=== PATIENT | female | born 1935 | race Caucasian/White ===

== ENCOUNTER 2017-04-27 14:33 | Emergency (ER) | payer OTHER ==
--- NOTE | 2017-04-27 14:35 | PDOC ---
Rapid Medical Evaluation Time Seen by Provider: 04/27/17 14:34 Medical Evaluation: Allergies Allergy/AdvReac Type Severity Reaction Status Date / Time No Known Allergies Allergy Verified 04/20/17 11:19 04/27/17 14:34 I have performed a brief in-person evaluation of this patient. The patient presents with a chief complaint of: Double vision x 1 week. Seen in ED for same few days ago and had optho consulted who recommenced CT head in ED which pt declined as per records. Has since seen optho and scheduled for retinal angiogram a week from now. Has h/o HTN, ?PVD Pertinent physical exam findings:Eyes grossly unremarkable, non-focal I have ordered the following:Nothing. Pt will need some type of neuroimaging but will defer to main ED staff The patient will proceed to the ED for further evaluation. 04/27/17 14:36 04/27/17 14:41 Discharge Disposition - Referrals Referrals: Lillian Camarena MD [Primary Care Provider] - - Patient Instructions - Post Discharge Activity
[2017-04-27 14:39] VITALS: BP 164/86; PULSE 87; TEMP 97.2; BMI 20.2
--- NOTE | 2017-04-27 15:23 | PDOC ---
History of Present Illness - General Chief Complaint: Difficulty with Vision Stated Complaint: SENT BY PCP Time Seen by Provider: 04/27/17 14:34 - History of Present Illness Initial Comments: 04/27/17 15:17 81 yo F with h/o HLD, HTN, and PAD who presents with blurry vision. Pt. with 1 week of intermittent,self resolving, stable, vertical diplopia with both eyes open improved with closing on eye, lasts for minutes to hours. No identifiable precipitators. No painful vision loss, no headache, no trauma. Saw management information systems director within past 3-4 days with unremarkable workup and 60/20 vision. Last seen 1 week ago in [facility] ED for similiar presentation with negative workup. CT Head not performed. 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 H/o BL cataract surgeries and R eye macular degeneration. Scheduled angiogram of the R eye May,. Denies chest pain, SOB, N/V, fevers/chills, urinary complaints, GI/abdominal complaints, LOC, lightheadedness, vertigo. Past History - Past Medical History Allergies/Adverse Reactions: Allergies Allergy/AdvReac Type Severity Reaction Status Date / Time No Known Allergies Allergy Verified 04/27/17 14:38 Home Medications: Ambulatory Orders Lisinopril 10 mg PO DAILY 04/20/17 COPD: No Hypercholesterolemia: Yes Other medical history: PVD - Suicide/Smoking/Psychosocial Hx Smoking History: Current every day smoker Number of Cigarettes Smoked Daily: 10 Information on smoking cessation initiated: No Hx Alcohol Use: Yes (SOCIAL) Drug/Substance Use Hx: No Substance Use Type: None Review of Systems - Review of Systems Comments:: 04/27/17 15:18 GENERAL/CONSTITUTIONAL: No fever or chills. No weakness. HEAD, EYES, EARS, NOSE AND THROAT: + Blurry vision/Diplopia. No ear pain or discharge. No sore throat.- CARDIOVASCULAR: No chest pain or shortness of breath RESPIRATORY: No cough, wheezing, or hemoptysis. GASTROINTESTINAL: No nausea, vomiting, diarrhea or constipation. GENITOURINARY: No dysuria, frequency, or change in urination. MUSCULOSKELETAL: No joint or muscle swelling or pain. No neck or back pain. SKIN: No rash NEUROLOGIC: No headache, vertigo, loss of consciousness, or change in strength/ sensation. ENDOCRINE: No increased thirst. No abnormal weight change HEMATOLOGIC/LYMPHATIC: No anemia, easy bleeding, or history of blood clots. ALLERGIC/IMMUNOLOGIC: No hives or skin allergy. *Physical Exam - Vital Signs Last Vital Signs Temp Pulse Resp BP Pulse Ox 97.2 F L 87 20 164/86 96 04/27/17 14:34 04/27/17 14:34 04/27/17 14:34 04/27/17 14:34 04/27/17 14:34 - Physical Exam Comments: 04/27/17 15:18 GENERAL: Awake, alert, and fully oriented, in no acute distress HEAD: No signs of trauma, normocephalic, atraumatic EYES: PERRLA, EOMI, sclera anicteric, conjunctiva clear ENT: Auricles normal inspection, hearing grossly normal, nares patent, oropharynx clear without exudates. Moist mucosa NECK: Normal ROM, supple, no JVD, or masses LUNGS: No distress, speaks full sentences, clear to auscultation bilaterally HEART: Regular rate and rhythm, normal S1 and S2, no murmurs, rubs or gallops, peripheral pulses normal and equal bilaterally. EXTREMITIES : Normal inspection, Normal range of motion, no edema. No clubbing or cyanosis. NEUROLOGICAL: Cranial nerves II through XII grossly intact. Normal speech, normal gait, no focal sensorimotor deficits SKIN: Warm, Dry, normal turgor, no rashes or lesions noted. Medical Decision Making - Medical Decision Making 04/27/17 16:00 81 yo F with h/o HLD, HTN, and PAD who presents with 1 week of intermittent, self resolving, stable, vertical diplopia with symptom onset occuring when both eyes open and improved with closing of one eye. Typically lasts for minutes to hours and there are no identifiable precipitators. Denies painful vision loss, headache, trauma, dizziness, slurred speech, lightheadedness, or weakness. Physical exam benign with no focal neuro deficits, and hemodynamically stable. H /o BL cataract surgeries and R eye macular degeneration. Will obtain CT head to r/o CVA. ED Course: CT Head Non Contrast: No evidence of hemorrhage, mass, or infarction. Imaging results discussed with pt. Pt. advised to stay in obs per DR. Moreno, but pt. adamantly refuses. Will proceed with outpatient f/u. and strict return precautions. Will also f/u with neurology and retinal specialist May,. *DC/Admit/Observation/Transfer Diagnosis at time of Disposition: Blurry vision, right eye - Discharge Dispostion Disposition: HOME Condition at time of disposition: Stable - Referrals Referrals: Lillian Camarena MD [Primary Care Provider] - Joce Moreno MD [Staff Physician] - - Patient Instructions Printed Discharge Instructions: DI for Visual Field Disturbances Additional Instructions: Please call the neurologist to schedule an appointment. Please get an MRI prescription and have an MRI as soon as possible. Please return to the ED with any further concenrs. - Post Discharge Activity
--- NOTE | 2017-04-27 15:54 | PDOC ---
Attending Attestation - HPI HPI: 04/27/17 16:17 The patient is an 81 year old female, with a significant past medical history of HTN & HLD, claudication (newly diagnosed) who was sent here by her PCP for a CT scan and complains for blurry/double vision for over 1 week. Patient was seen here in the ER for the same issue regarding her vision. She states that when she opens one eye at a time, she is able to see clearly but she is sees double in the vertical plane. She saw an opthamologist who reports her vision was 60/20. She also reports leg cramping when walking uphill. She had an ultrasound of her legs where they diagnosed her with claudication. She denies trauma to the eyes. She denies recent fevers, chills, headache or dizziness. She denies recent nausea, vomit, diarrhea or constipation. She denies recent dysuria, frequency, urgency or hematuria. She denies recent chest pain or shortness of breath. Allergies: NKA Past surgical history: bilateral cataract surgery. biopsy for breast cancer (20+ years ago) Social history: Current everyday smoker. FMHx: cataracts & macular degeneration. Primary Care Physician: Lillian Camarena M.D. - Physicial Exam PE: 04/27/17 16:17 GENERAL: Awake, alert, and fully oriented, in no acute distress HEAD: No signs of trauma EYES: right eye - veritical diplopia when both eyes are opened. PERRLA, EOMI, sclera anicteric, conjunctiva clear ENT: Auricles normal inspection, hearing grossly normal, nares patent, oropharynx clear without exudates. Moist mucosa NECK: Normal ROM, supple, no lymphadenopathy, JVD, or masses LUNGS: Breath sounds equal, clear to auscultation bilaterally. No wheezes, and no crackles HEART: Regular rate and rhythm, normal S1 and S2, no murmurs, rubs or gallops ABDOMEN: Soft, nontender, normoactive bowel sounds. No guarding, no rebound. No masses EXTREMITIES: Normal range of motion, no edema. No clubbing or cyanosis. No cords, erythema, or tenderness NEUROLOGICAL: Cranial nerves II through XII grossly intact. Normal speech, normal gait SKIN: Warm, Dry, normal turgor, no rashes or lesions noted. <Yancy Palomo Last Filed: 04/27/17 16:17> - Resident Resident Name: Sang Peguero - ED Attending Attestation I have performed the following: I have examined & evaluated the patient, The case was reviewed & discussed with the resident, I agree w/resident's findings & plan, Exceptions are as noted - Medical Decision Making 04/27/17 15:54 I, Dr. Ilsa Curtis, DO, attest that this document has been prepared under my direction and personally reviewed by me in its entirety. I further attest, that it accurately reflects all work, treatment, procedures and medical decision -making performed by me. 04/27/17 16:36 a/p: 81yo with vertical diploplia x 1.5 weeks -seen retinal specialists and ophthomologists at [facility]. Scheduled for an angiogram of the R eye on may 13 -sent in by PMD for head ct head ct ordered 04/27/17 16:42 re-eval: discussed imaging results with the patient. discussed the case with Dr. Moreno who recommeds the patient stay in obs for MRI brain and MRA head. this was discussed in full detail with the patient, Dr. Camarena and the patient. While on the phone with DR. Camarena and discussing staying for further eval the patient adamantly refuses to stay for obs and mra. states she wants to have this done as an oupt. Dr. Camarena has said she has tried to schedule her as an outpt already, but couldn't get her an appt for this week. Will have the patient follow up with neurology. Has appt with retinal specialist for may 13 for angiogram. <Ilsa Curtis - Last Filed: 04/27/17 16:51> Discharge Disposition - Discharge Dispostion Admit: No <Ilsa Curtis - Last Filed: 04/27/17 16:51> - Diagnosis Blurry vision, right eye - Discharge Dispostion Disposition: HOME Condition at time of disposition: Stable - Referrals Referrals: Lillian Camarena MD [Primary Care Provider] - Joce Moreno MD [Staff Physician] - - Patient Instructions Printed Discharge Instructions: DI for Visual Field Disturbances Additional Instructions: Please call the neurologist to schedule an appointment. Please get an MRI prescription and have an MRI as soon as possible. Please return to the ED with any further concenrs. - Post Discharge Activity
== END 2017-04-27 17:16 | disposition home or self-care (01) ==
LOC: JER 14:33
DX: H53.8 Other visual disturbances (principal); I10 Essential (primary) hypertension; E78.5 Hyperlipidemia, unspecified; I73.9 Peripheral vascular disease, unspecified; F17.210 Nicotine dependence, cigarettes, uncomplicated
CPT/HCPCS: 70450-TC; 99283-25

== ENCOUNTER 2021-10-04 09:28 | Emergency (ER) | payer OTHER ==
[2021-10-04 09:37] VITALS: TEMP 97.7; BMI 23.4
[2021-10-04 10:07] LABS: PH,URINE 6.5 (5.0-8.0); URINE APPEARANCE CLEAR; URINE BILIRUBIN NEGATIVE (NEGATIVE); URINE COLOR YELLOW; URINE GLUCOSE (UA) NEGATIVE (NEGATIVE); URINE KETONE NEGATIVE (NEGATIVE); URINE LEUK ESTERASE NEGATIVE (NEGATIVE); URINE NITRITE NEGATIVE (NEGATIVE); URINE PROTEIN NEGATIVE (NEGATIVE); URINE UROBILINOGEN 0.2 mg/dL (0.2-1.0)
[2021-10-04 10:25] LABS: EOS % 4.4 % (0-4.5); HEMATOCRIT 38.2 % (32.4-45.2); HEMOGLOBIN 12.8 GM/dL (10.7-15.3); MCH 32.7 pg (25.7-33.7); MCHC 33.6 g/dl (32.0-36.0); MEAN CELL VOLUME 97.3 fl (80-96); MONO % 6.8 % (3.8-10.2); NEUT % 64.8 % (42.8-82.8); PLATELET COUNT 198 10^3/uL (134-434); RBC 3.92 M/mm3 (3.60-5.2); RDW 12.8 % (11.6-15.6); WHITE BLOOD COUNT 5.8 K/mm3 (4.0-10.0)
[2021-10-04] MEDS ORDERED: LISINOPRIL 20 MG TABLET ONE (10:29)
[2021-10-04 10:34] LABS: ACTIVATED PTT 30.2 SECONDS (25.2-36.5); INR 0.98 (0.83-1.09); PROTHROMBIN TIME (PATIENT) 11.3 SEC (9.7-13.0)
[2021-10-04] MEDS ORDERED: LISINOPRIL 20 MG TABLET PO ONE (10:40)
[2021-10-04 10:45] LABS: CALCIUM 8.9 mg/dL (8.5-10.1)
[2021-10-04 10:46] LABS: ALBUMIN 3.6 g/dl (3.4-5.0); BLOOD UREA NITROGEN 19.6 mg/dL (7-18)
[2021-10-04 10:51] LABS: BILIRUBIN,TOTAL 0.4 mg/dL (0.2-1); TOT PROT 6.6 g/dl (6.4-8.2)
[2021-10-04 12:56] VITALS: BP 162/68; PULSE 65
== END 2021-10-04 13:13 | disposition left against medical advice (07) ==
LOC: JER 09:28
DX: R41.82 Altered mental status, unspecified (principal)
CPT/HCPCS: 36415; 70450-TC; 71045-TC-FY; 80053; 81003; 82962; 85025; 85610; 85730; 86850; 86900; 86901; 87040; 87086; 93005; 93010; 99285-25

== ENCOUNTER 2024-01-07 08:33 | Observation (INO) | payer OTHER ==
[2024-01-07] MEDS: SODIUM CHLORIDE 1,000 ML IV STA (10:30)
[2024-01-07 10:35] LABS: PH,URINE 7.5 (5.0-8.0); URINE APPEARANCE CLEAR; URINE BILIRUBIN NEGATIVE (NEGATIVE); URINE COLOR YELLOW; URINE GLUCOSE (UA) NEGATIVE (NEGATIVE); URINE KETONE NEGATIVE (NEGATIVE); URINE LEUK ESTERASE NEGATIVE (NEGATIVE); URINE NITRITE NEGATIVE (NEGATIVE); URINE PROTEIN NEGATIVE (NEGATIVE)
[2024-01-07 10:37] LABS: BASO % 0.8 % (0-2.0); EOS % 1.5 % (0-4.5); HEMATOCRIT 38.6 % (32.4-45.2); HEMOGLOBIN 13.5 GM/dL (10.7-15.3); MCH 33.4 pg (25.7-33.7); MEAN CELL VOLUME 95.4 fl (80-96); MEAN PLT VOLUME 8.8 fl (7.5-11.1); MONO % 9.1 % (3.8-10.2); NEUT % 71.6 % (42.8-82.8); PLATELET COUNT 237 10^3/uL (134-434); RBC 4.05 M/mm3 (3.60-5.2); RDW 12.5 % (11.6-15.6); WHITE BLOOD COUNT 7.8 K/mm3 (4.0-10.0)
[2024-01-07 10:42] LABS: INR 0.98 (0.83-1.09); PROTHROMBIN TIME (PATIENT) 11.3 SEC (9.7-13.0)
[2024-01-07 10:50] LABS: ACTIVATED PTT 21.1 SECONDS (25.2-36.5)
[2024-01-07 11:03] LABS: POTASSIUM 4.1 mmol/L (3.5-5.1)
[2024-01-07 11:06] LABS: ALBUMIN 3.4 g/dl (3.4-5.0); BLOOD UREA NITROGEN 26.5 mg/dL (7-18); MAGNESIUM 2.6 mg/dL (1.8-2.4)
[2024-01-07 11:08] LABS: CREATININE 1.1 mg/dL (0.55-1.3)
[2024-01-07 11:10] LABS: BILIRUBIN,TOTAL 0.6 mg/dL (0.2-1); TOT PROT 7.4 g/dl (6.4-8.2)
[2024-01-07] MEDS: LIDOCAINE 5% TOPICAL PATCH TP SCH (19:17)
[2024-01-07] MEDS: DOCUSATE SODIUM 100 MG CAPSULE (FP) PO SCH (22:09)
[2024-01-07] MEDS: ACETAMINOPHEN 325 MG TABLET (FP) PO PRN (22:09)
[2024-01-07] MEDS: ROSUVASTATIN CA 5 MG TABLET PO SCH (22:09)
[2024-01-07] MEDS: LIDOCAINE PATCH REMOVAL MC SCH (22:11)
[2024-01-07] MEDS: HEPARIN NA (PORCINE) 5,000 UNITS/ML 1ML VIAL SQ SCH (22:11)
[2024-01-08 09:52] LABS: BASO % 0.9 % (0-2.0); HEMOGLOBIN 11.7 GM/dL (10.7-15.3); LYMPH % 19.3 % (8-40); MCH 33.3 pg (25.7-33.7); MCHC 35.4 g/dl (32.0-36.0); MEAN CELL VOLUME 94.3 fl (80-96); MEAN PLT VOLUME 8.8 fl (7.5-11.1); MONO % 9.9 % (3.8-10.2); NEUT % 66.9 % (42.8-82.8); PLATELET COUNT 257 10^3/uL (134-434); RBC 3.51 M/mm3 (3.60-5.2); RDW 12.5 % (11.6-15.6); WHITE BLOOD COUNT 7.6 K/mm3 (4.0-10.0)
[2024-01-08] MEDS ORDERED: PATIENT'S OWN MEDICATION (NON-FORMULARY) (Vortioxetine Hydrobromide [Trintellix] 5 MG Tabl PO SCH (10:00)
[2024-01-08] MEDS: LISINOPRIL 20 MG TABLET PO SCH (10:02)
[2024-01-08 10:14] LABS: POTASSIUM 3.8 mmol/L (3.5-5.1)
[2024-01-08 10:19] LABS: ALBUMIN 2.9 g/dl (3.4-5.0)
[2024-01-08 10:24] LABS: BILIRUBIN,TOTAL 0.5 mg/dL (0.2-1)
[2024-01-08 10:25] LABS: TOT PROT 6.3 g/dl (6.4-8.2)
[2024-01-08] MEDS: DONEPEZIL HCL 10 MG TABLET (FP) PO SCH (21:27)
[2024-01-09 09:13] LABS: BASO % 0.8 % (0-2.0); EOS % 4.4 % (0-4.5); HEMATOCRIT 32.6 % (32.4-45.2); HEMOGLOBIN 11.5 GM/dL (10.7-15.3); LYMPH % 30.2 % (8-40); MCH 33.2 pg (25.7-33.7); MCHC 35.3 g/dl (32.0-36.0); MEAN PLT VOLUME 8.4 fl (7.5-11.1); MONO % 9.9 % (3.8-10.2); NEUT % 54.7 % (42.8-82.8); PLATELET COUNT 245 10^3/uL (134-434); RBC 3.47 M/mm3 (3.60-5.2); RDW 12.6 % (11.6-15.6); WHITE BLOOD COUNT 5.8 K/mm3 (4.0-10.0)
[2024-01-09 09:39] LABS: POTASSIUM 3.9 mmol/L (3.5-5.1)
[2024-01-09 09:47] LABS: BLOOD UREA NITROGEN 25.5 mg/dL (7-18); CALCIUM 8.7 mg/dL (8.5-10.1)
[2024-01-09 09:51] LABS: CREATININE 0.9 mg/dL (0.55-1.3)
[2024-01-09 10:51] VITALS: BP 138/69; PULSE 72; RESP 17; TEMP 98.5
[2024-01-09 12:41] VITALS: BMI 17.3
== END 2024-01-09 13:18 ==
LOC: JER 08:33 → INTOOBSV 15:34 → JERBED 15:34 → UNDOADMOB 15:34 → JERBED 16:19 → J7W 19:00 → JERBED 19:00
PROVIDERS: ADMIT Internal Medicine; ATTEND Nurse Practitioner
PROC: 3E023GC Introduction of Other Therapeutic Substance into Muscle, Percutaneous Approach (ICD-10-PCS; principal; 2024-01-07)
PROC: 3E0337Z Introduction of Electrolytic and Water Balance Substance into Peripheral Vein, Percutaneous Approach (ICD-10-PCS; 2024-01-07)
DX: R41.82 Altered mental status, unspecified (principal); G30.9 Alzheimer's disease, unspecified; F02.80 Dementia in other diseases classified elsewhere, unspecified severity, without behavioral disturbance, psychotic disturbance, mood disturbance, and anxiety; M54.12 Radiculopathy, cervical region; I10 Essential (primary) hypertension; E78.5 Hyperlipidemia, unspecified; R53.1 Weakness; Z86.73 Personal history of transient ischemic attack (TIA), and cerebral infarction without residual deficits
CPT/HCPCS: 0241U-QW; 36415; 70450-TC; 71045-TC-FY; 72125-TC; 80048; 80053; 81003; 82962; 83735; 84443; 84484; 85025; 85610; 85730; 87086; 93005; 93010; 96360; 96372; 97116-GP; 97161-GP; 99285-25; G0378; J1644